=== PATIENT | male | born 1955 | race Caucasian/White ===

== ENCOUNTER 2018-01-29 08:47 | Inpatient (IN) | payer OTHER ==
[~2018-01-29] VITALS: Ht 175.3 cm; Wt 99.5 kg
[2018-01-29] MEDS ORDERED: SODIUM CHLORIDE 0.9% 1,000 ML IV ONE (09:58)
[2018-01-29] MEDS ORDERED: ASPirin 81 mg TAB PO ONE (10:00)
[2018-01-29] MEDS ORDERED: NITROGLYCERIN 0.4 MG SL TAB SL ONE (10:00)
[2018-01-29 10:47] LABS: Basophils # (auto) 0 uL; Basophils % (auto) 0.4 % (0.0-2.0); Eosinophils # (auto) 0.6 uL; Hematocrit 42.2 % (41.0-53.0); Lymphocytes # (auto) 2.2 uL; Lymphocytes % (auto) 26.3 % (10.0-50.0); Mean Corpuscular Hemoglobin 28.4 pg (28.0-32.0); Mean Corpuscular Hgb Conc. 33.2 g/dL (32.0-36.0); Mean Corpuscular Volume 85.7 fL (80.0-100.0); Monocytes # (auto) 0.6 uL; Monocytes % (auto) 6.8 % (0.0-12.0); Neutrophils # (auto) 4.9 uL; Neutrophils % (auto) 59.5 % (37.0-80.0); Nucleated Red Blood Cells % 0.1 %; Platelet Count (auto) 294 10^3/uL (140-450); Red Blood Cells 4.92 10^6/uL (4.5-5.90); Red Cell Distribution Width 14.2 % (11.8-14.3); White Blood Cell 8.2 10^3/uL (4.4-10.8)
[2018-01-29 11:08] LABS: Alanine Aminotransferase 32 U/L (16-61); Albumin 3.6 g/dL (3.4-5.0); Anion Gap 10 (5-15); Aspartate Aminotransferase 24 U/L (15-37); BUN/Creatinine Ratio 16.2; Blood Urea Nitrogen 23 mg/dL (7-18); Calcium 8.7 mg/dL (8.5-10.1); Carbon Dioxide 25 mmol/L (21-32); Chloride 104 mmol/L (98-107); GFR African American 65 mL/min; GFR Non-African American 54 mL/min; Glucose 246 mg/dL (74-106); Potassium 3.8 mmol/L (3.5-5.1); Sodium 139 mmol/L (136-145)
[2018-01-29 11:12] LABS: Alkaline Phosphatase 105 U/L (45-117); Bilirubin, Total 0.5 mg/dL (0.2-1.0); Total Protein 7.3 g/dL (6.4-8.2)
[2018-01-29 11:53] LABS: INR 1.14 (0.9-1.15); Partial Thromboplastin Time 31.1 sec (22.64-33.71); Prothrombin Time 12.4 sec (9.37-12.3)
[2018-01-29] MEDS ORDERED: NITROGLYCERIN 0.4 MG SL TAB SL PRN (14:15)
[2018-01-29] MEDS ORDERED: MEPERIDINE HCL (50 MG/ML) 1 ML VIAL IV ONE ×2 (15:00→20:15)
[2018-01-29] MEDS ORDERED: TERA10CA36 PO (17:28)
[2018-01-29] MEDS ORDERED: DEXT4CHW PO (17:28)
[2018-01-29] MEDS ORDERED: FURO20TA3 PO (17:28)
[2018-01-29] MEDS ORDERED: MEX150C PO (17:28)
[2018-01-29] MEDS ORDERED: VITADTP TOP (17:28)
[2018-01-29] MEDS ORDERED: INSLANTI SC (17:28)
[2018-01-29] MEDS ORDERED: GABA-339 PO (17:28)
[2018-01-29] MEDS ORDERED: TRAZ100T2 PO (17:28)
[2018-01-29] MEDS ORDERED: CYAN1TAB14 PO (17:28)
[2018-01-29] MEDS ORDERED: OMEP20CA74 PO (17:28)
[2018-01-29] MEDS ORDERED: PANC3600 PO (17:28)
[2018-01-29] MEDS ORDERED: PERCOT PO (17:28)
[2018-01-29] MEDS ORDERED: HYDR4CRE35 PR (17:28)
[2018-01-29] MEDS ORDERED: diphenhdrAMINE HCL 25 MG CAP PO ONE (20:15)
[2018-01-29] MEDS ORDERED: diphenhdrAMINE HCL 25 MG CAP PO PRN (20:15)
[2018-01-29] MEDS: FLUCONAZOLE 100 MG TAB PO SCH (21:25)
[2018-01-29 21:57] LABS: Urine Bacteria NONE SEEN /hpf (None Seen); Urine Blood Negative /uL (Negative); Urine WBC <1 /hpf (0 - 3)
[2018-01-29] MEDS: methylPREDNISolone SOD SUCC 40 MG/ML VL IV SCH (22:00)
[2018-01-29] MEDS ORDERED: METOPROLOL TARTRATE 25 MG TAB PO ONE (22:00)
[2018-01-29 22:26] VITALS: BP 154/71
[2018-01-30] VITALS (7 sets, daily range): BP systolic 125–179; BP diastolic 48–90
[2018-01-30] MEDS: MEPERIDINE HCL (50 MG/ML) 1 ML VIAL IV PRN ×6 (00:51→21:50)
[2018-01-30] MEDS: methylPREDNISolone SOD SUCC 40 MG/ML VL IV SCH ×3 (06:07→21:52)
[2018-01-30] MEDS ORDERED: ADENOSINE 83 MG in GIVE UN-DILUTED 0 ML IV STA (08:13)
[2018-01-30] MEDS ORDERED: DEXTROSE (50%) 50ML SYRG IV PRN (13:45)
[2018-01-30] MEDS: FLUCONAZOLE 100 MG TAB PO SCH (13:51)
[2018-01-30] MEDS ORDERED: GABAPENTIN 300 MG CAP PO SCH (14:00)
[2018-01-30] MEDS: diphenhdrAMINE HCL 50 MG/1 ML VL IV PRN ×3 (14:03→22:40)
[2018-01-30] MEDS ORDERED: INSULIN LANTUS (GLARGINE) 1 /0.01ml (100units/ml) SC ONE (14:30)
[2018-01-30] MEDS: GABAPENTIN 300 MG CAP PO SCH ×2 (14:38→21:53)
[2018-01-30] MEDS: CYANOCOBALAMIN 500 MCG TAB PO SCH (14:38)
[2018-01-30] MEDS: ACCU-CHEK COMFORT CURVE STRIP VI SCH ×3 (14:39→21:53)
[2018-01-30] MEDS: InsuLIN REG 1unit/0.01ml Soln (100units/ml) SC SCH ×3 (14:39→21:57)
[2018-01-30] MEDS: amLODIPine BESYLATE 5 MG TAB PO SCH (15:00)
[2018-01-30] MEDS: FUROSEMIDE 20 MG TAB PO SCH (15:00)
[2018-01-30] MEDS ORDERED: InsuLIN REG 1unit/0.01ml Soln (100units/ml) SC SCH ×2 (17:00)
[2018-01-30] MEDS: MEXILETINE HYDROCHLORIDE 150 MG CAP PO SCH ×2 (17:11→21:53)
[2018-01-30] MEDS: PANCREATIC ENZYMES 4200 UNIT CAP PO SCH (18:25)
[2018-01-30] MEDS ORDERED: GABA-339 PO (19:41)
[2018-01-30] MEDS ORDERED: ATO40T PO (19:45)
[2018-01-30] MEDS ORDERED: AMLO5TAB2 PO (19:45)
[2018-01-30] MEDS: traZODone HCL 50 MG TAB PO SCH (21:52)
[2018-01-30] MEDS: TERAZOSIN HCL 5 MG CAP PO SCH (21:53)
[2018-01-30] MEDS: ATORVASTATIN 20 MG TAB PO SCH (21:53)
[2018-01-30] MEDS: INSULIN LANTUS (GLARGINE) 1 /0.01ml (100units/ml) SC SCH (21:57)
[2018-01-31] MEDS: MEPERIDINE HCL (50 MG/ML) 1 ML VIAL IV PRN ×5 (01:23→21:18)
[2018-01-31] MEDS: diphenhdrAMINE HCL 50 MG/1 ML VL IV PRN ×4 (03:20→18:56)
[2018-01-31 05:09] VITALS: BP 130/62
[2018-01-31] MEDS: methylPREDNISolone SOD SUCC 40 MG/ML VL IV SCH ×3 (06:01→21:47)
[2018-01-31] MEDS: ACCU-CHEK COMFORT CURVE STRIP VI SCH ×4 (06:01→21:51)
[2018-01-31] MEDS: InsuLIN REG 1unit/0.01ml Soln (100units/ml) SC SCH ×4 (06:13→22:00)
[2018-01-31] MEDS: FLUCONAZOLE 100 MG TAB PO SCH (08:30)
[2018-01-31] MEDS: amLODIPine BESYLATE 5 MG TAB PO SCH (08:31)
[2018-01-31] MEDS: GABAPENTIN 300 MG CAP PO SCH ×2 (08:31→21:45)
[2018-01-31] MEDS: FUROSEMIDE 20 MG TAB PO SCH (08:31)
[2018-01-31] MEDS: CYANOCOBALAMIN 500 MCG TAB PO SCH (08:32)
[2018-01-31 09:18] VITALS: BP 137/69
[2018-01-31] MEDS: PANCREATIC ENZYMES 4200 UNIT CAP PO SCH ×3 (10:53→18:12)
[2018-01-31] MEDS: MEXILETINE HYDROCHLORIDE 150 MG CAP PO SCH ×2 (12:13→21:47)
[2018-01-31 13:00] VITALS: BP 133/89
[2018-01-31 17:27] VITALS: BP 121/91
[2018-01-31] MEDS: traZODone HCL 50 MG TAB PO SCH (21:45)
[2018-01-31] MEDS: ATORVASTATIN 20 MG TAB PO SCH (21:46)
[2018-01-31] MEDS: TERAZOSIN HCL 5 MG CAP PO SCH (21:47)
[2018-01-31] MEDS: INSULIN LANTUS (GLARGINE) 1 /0.01ml (100units/ml) SC SCH (21:51)
[2018-01-31 22:00] VITALS: BP 147/72
== END 2018-01-31 23:30 | DRG 313 ==
LOC: ER 08:50 → EEVIPCON 08:51 → TELE 08:51 → TELE-E-ADS 17:27 → EAST 01-30 00:28
PROVIDERS: ADMIT Specialist; ATTEND Specialist
DX: R07.89 Other chest pain (principal); E10.22 Type 1 diabetes mellitus with diabetic chronic kidney disease; I13.10 Hypertensive heart and chronic kidney disease without heart failure, with stage 1 through stage 4 chronic kidney disease, or unspecified chronic kidney disease; E78.5 Hyperlipidemia, unspecified; N18.3 Chronic kidney disease, stage 3 (moderate); Z79.4 Long term (current) use of insulin; Z85.07 Personal history of malignant neoplasm of pancreas; Z90.81 Acquired absence of spleen; Z90.410 Acquired total absence of pancreas; Z88.1 Allergy status to other antibiotic agents; Z90.49 Acquired absence of other specified parts of digestive tract
CPT/HCPCS: 36415; 71046; 78452; 80053; 81001; 82962; 83880; 84484; 85025; 85610; 85730; 93005; 93017; 96361; 96374; J0153; J1815